=== PATIENT | female | born 1985 | race Caucasian/White ===

== ENCOUNTER 2018-11-25 22:15 | Emergency (ER) | payer BC ==
[2018-11-25 22:55] LABS: Absolute Lymphocytes (CBC) 5.4 K/uL (0.7-4.9); Absolute Monocytes 0.6 K/uL (0.1-1.3); Absolute Neutrophil 4.3 K/uL (1.8-8.0); Basophils % 0.2 % (0-1.3); Eosinophils % 0.1 % (0-4.4); Hematocrit 41.2 % (36.0-45.0); Lymphocytes % 52.7 % (15.3-44.8); MPV 9.6 fL (7.6-11.3); Monocytes % 5.5 % (3.3-12.3); RBC Red Blood Cell Count 4.84 M/uL (3.86-4.86)
[2018-11-25 23:07] LABS: Blood Morphology Comment NOT SEEN (NOT SEEN); Platelet Estimate ADEQ
[2018-11-25] MEDS ORDERED: ONDANSETRON 4 MG/2 ML VIAL ONE (23:09)
[2018-11-25 23:10] LABS: Protime INR 0.95
[2018-11-25] MEDS ORDERED: KETOROLAC 30 MG/ML INJ ONE (23:48)
--- NOTE | 2018-11-25 23:54 | ER ---
Nurse's Notes [facility] Name: Georgia York Age: 33 yrs Sex: Female : 1985 Arrival Date: 11/25/2018 Time: 22:18 Bed 5 Private MD: None, None Diagnosis: Toxic effect of coral snake venom, accidental (unintentional) Presentation: 11/25 22:23 Presenting complaint: Patient states: She was bitten by a snake on the foot aj1 approximately 50 minutes ago, patient reports and increase in redness and swelling to the foot. Patient also reports numbness to the foot, denies SOB. Transition of care: patient was not received from another setting of care. Onset of symptoms was November 25, 2018 at 21:35. Risk Assessment: Do you want to hurt yourself or someone else? Patient reports no desire to harm self or others. Initial Sepsis Screen: Does the patient meet any 2 criteria? HR > 90 bpm. No. Patient's initial sepsis screen is negative. Does the patient have a suspected source of infection? No. Patient's initial sepsis screen is negative. Care prior to arrival: None. 22:23 Method Of Arrival: Wheelchair aj1 22:23 Acuity: MAGAN 2 aj1 Triage Assessment: 22:25 Bite description: bite sustained to dorsum of left foot by a snake. General: Appears in aj1 no apparent distress. uncomfortable, Behavior is calm, cooperative, appropriate for age. Pain: Complains of pain in dorsum of left foot. Neuro: Level of Consciousness is awake, alert, obeys commands. Cardiovascular: Patient's skin is warm and dry. Respiratory: Airway is patent Respiratory effort is even, unlabored, Respiratory pattern is regular, symmetrical. 22:35 Bite description: animal information: vaccination(s) is not applicable. ak1 STUDENT DEVELOPMENT COORDINATOR: 23:40 negative preg in ER ak1 Historical: - Allergies: 22:25 No Known Allergies; aj1 - Home Meds: 22:25 control pills [Active]; aj1 - PMHx: 22:25 None; aj1 - PSHx: 22:25 Hernia repair; aj1 - Immunization history:: Flu vaccine is up to date. - Social history:: Smoking status: Patient/guardian denies using tobacco. - Ebola Screening: : Patient denies travel to an Ebola-affected area in the 21 days before illness onset. Screenin:34 Abuse screen: Denies threats or abuse. Denies injuries from another. Nutritional ak1 screening: No deficits noted. Tuberculosis screening: No symptoms or risk factors identified. Fall Risk None identified. Assessment: 22:32 General: Appears in no apparent distress. Behavior is calm, cooperative, Smells of ak1 alcohol. Pain: Complains of pain in left foot. Neuro: No deficits noted. Cardiovascular: No deficits noted. Respiratory: No deficits noted. GI: No signs and/or symptoms were reported involving the gastrointestinal system. : No signs and/or symptoms were reported regarding the genitourinary system. EENT: No signs and/or symptoms were reported regarding the EENT system. Derm: Skin is intact, Skin is dry, Skin is red, Wound noted left foot Bruising that is bright red, dark purple. Musculoskeletal: Reports numbness in left fourth toe and left fifth toe. 23:41 Reassessment: Patient appears in no apparent distress at this time. swelling and ak1 discoloration increasing up pt's left foot and outer left ankle, area remarked with time and date. 11/26 00:19 Reassessment: Patient appears in no apparent distress at this time. No changes from ak1 previously documented assessment. Vital Signs: 11/25 22:25 BP 147 / 101; Pulse 114; Resp 20; Temp 98.5; Pulse Ox 100% on R/A; Weight 63.05 kg (R); aj1 Height 5 ft. 3 in. (160.02 cm) (R); 22:34 BP 129 / 95; Pulse 96; Resp 18; Temp 98.5(TE); Pulse Ox 100% on R/A; ak1 23:29 BP 126 / 84; Pulse 92; Resp 18; Temp 98.5; Pulse Ox 100% on R/A; ak1 11/26 00:19 BP 125 / 83; Pulse 93; Resp 18; Temp 98.5; Pulse Ox 100% on R/A; ak1 11/25 22:25 Body Mass Index 24.62 (63.05 kg, 160.02 cm) aj1 ED Course: 11/25 22:18 Patient arrived in ED. mr 22:18 None, None is Private Physician. mr 22:24 Triage completed. aj1 22:25 Arm band placed on Patient placed in an exam room. aj1 22:31 Emely Delgado, RN is Primary Nurse. ak1 22:32 Patient has correct armband on for positive identification. Bed in low position. Call ak1 light in reach. Side rails up X2. Adult w/ patient. Pulse ox on. NIBP on. 22:32 Initial lab(s) drawn, by me, sent to lab. Inserted saline lock: 20 gauge in right ak antecubital area, using aseptic technique. Blood collected. 22:52 Hossein Mcmillan MD is Attending Physician. tw4 23:29 No provider procedures requiring assistance completed. Patient transferred, IV remains ak1 in place. Administered Medications: 23:09 Drug: Zofran 4 mg Route: IVP; Site: right antecubital; ak1 23:39 Follow up: Response: No adverse reaction ak1 23:38 Drug: TORadol 30 mg Route: IVP; Site: right antecubital; ak1 23:39 Follow up: Response: No adverse reaction [facility] Outcome: 23:29 Instructed on the need for transfer. ak1 23:42 Transferred by ground EMS Transfer form completed. Note: Sean [facility] ER. report given to ak1 Aparna GUAMANnetwork engineer for Sean Zamzam 23:42 Condition: stable 23:53 ER care complete, transfer ordered by . tw4 11/26 00:21 Patient left the ED. ak Signatures: Kiera Farias, RN RN aj1 Linh Reynolds mr Emely Delgado, RN RN ak1 Hossein Mcmillan MD MD tw4
--- NOTE | 2018-11-28 04:32 | EDPHYS ---
Physician Documentation [facility] Name: Georgia York Age: 33 yrs Sex: Female : 1985 Arrival Date: 11/25/2018 Time: 22:18 Bed 5 Private MD: None, None ED Physician Hossein Mcmillan HPI: 11/26 06:54 This 33 yrs old Female presents to ER via Wheelchair with complaints of Snake tw4 bite. 06:54 The patient was bitten on the left fourth toe, by a snake. Onset: The symptoms/episode tw4 began/occurred today. Secondary to the bite the patient reports pain. Associated signs and symptoms: The patient has no apparent associated signs or symptoms. Severity of symptoms: At their worst the symptoms were moderate, in the emergency department the symptoms are unchanged. WORK CHECKER: 11/25 23:40 negative preg in ER ak1 Historical: - Allergies: 22:25 No Known Allergies; aj1 - Home Meds: 22:25 control pills [Active]; aj1 - PMHx: 22:25 None; aj1 - PSHx: 22:25 Hernia repair; aj1 - Immunization history:: Flu vaccine is up to date. - Social history:: Smoking status: Patient/guardian denies using tobacco. - Ebola Screening: : Patient denies travel to an Ebola-affected area in the 21 days before illness onset. ROS: 11/26 06:54 Constitutional: Negative for fever, chills, and weight loss, Eyes: Negative for injury, tw4 pain, redness, and discharge, Cardiovascular: Negative for chest pain, palpitations, and edema, Respiratory: Negative for shortness of breath, cough, wheezing, and pleuritic chest pain, Abdomen/GI: Negative for abdominal pain, nausea, vomiting, diarrhea, and constipation. Skin: Negative for injury, rash, and discoloration, Neuro: Negative for headache, weakness, numbness, tingling, and seizure. MS/extremity: Positive for pain, swelling, tenderness. Exam: 06:54 Constitutional: This is a well developed, well nourished patient who is awake, alert, tw4 and in no acute distress. Head/Face: Normocephalic, atraumatic. Chest/axilla: Normal chest wall appearance and motion. Nontender with no deformity. No lesions are appreciated. Cardiovascular: Regular rate and rhythm with a normal S1 and S2. No gallops, murmurs, or rubs. Normal PMI, no JVD. No pulse deficits. Respiratory: Lungs have equal breath sounds bilaterally, clear to auscultation and percussion. No rales, rhonchi or wheezes noted. No increased work of breathing, no retractions or nasal flaring. Abdomen/GI: Soft, non-tender, with normal bowel sounds. No distension or tympany. No guarding or rebound. No evidence of tenderness throughout. 06:54 Musculoskeletal/extremity: Extremities: pain, puncture. Vital Signs: 11/25 22:25 BP 147 / 101; Pulse 114; Resp 20; Temp 98.5; Pulse Ox 100% on R/A; Weight 63.05 kg (R); aj1 Height 5 ft. 3 in. (160.02 cm) (R); 22:34 BP 129 / 95; Pulse 96; Resp 18; Temp 98.5(TE); Pulse Ox 100% on R/A; ak1 23:29 BP 126 / 84; Pulse 92; Resp 18; Temp 98.5; Pulse Ox 100% on R/A; ak1 11/26 00:19 BP 125 / 83; Pulse 93; Resp 18; Temp 98.5; Pulse Ox 100% on R/A; ak1 11/25 22:25 Body Mass Index 24.62 (63.05 kg, 160.02 cm) aj1 MDM: 11/25 22:52 Patient medically screened. tw4 11/26 06:54 Differential diagnosis: superficial laceration, tendon injury. Data reviewed: vital tw4 signs, nurses notes. Counseling: I had a detailed discussion with the patient and/or guardian regarding: the historical points, exam findings, and any diagnostic results supporting the discharge/admit diagnosis, the need for outpatient follow up. Special discussion:. ED course: pt has possible coral snake envenomation. will transfer to [facility] for further evaluaiton. 11/25 22:40 Order name: CBC with Manual Differential bb 11/25 22:40 Order name: PT-INR bb 11/25 22:40 Order name: Ptt, Activated bb 11/25 22:40 Order name: Fibrinogen bb 11/25 22:40 Order name: D-Dimer bb 11/25 23:05 Order name: Test, Serum bb Administered Medications: 11/25 23:09 Drug: Zofran 4 mg Route: IVP; Site: right antecubital; ak1 23:39 Follow up: Response: No adverse reaction ak1 23:38 Drug: TORadol 30 mg Route: IVP; Site: right antecubital; ak1 23:39 Follow up: Response: No adverse reaction ak1 Disposition: 11/25/18 23:53 Transfer ordered to [facility]. Diagnosis is Toxic effect of coral snake venom, accidental (unintentional). - Reason for transfer: Higher level of care. - Accepting physician is Dr Stapleton. - Condition is Stable. - Problem is new. - Symptoms have improved. Signatures: Dispatcher [employer] EDKiera Silverio RN RN barry1 Emely Delgado RN RN ak1 Hossein Mcmillan MD MD tw4 Corrections: (The following items were deleted from the chart) 11/26 00:21 11/25 23:53 11/25/2018 23:53 Transfer ordered to [facility]. Diagnosis is Toxic ak1 effect of coral snake venom, accidental (unintentional). Reason for transfer: Higher level of care. Accepting physician is Dr Stapleton. Condition is Stable. Problem is new. Symptoms have improved. tw4
== END 2018-11-26 00:21 | disposition short-term general hospital (02) ==
LOC: ER 22:15
DX: T63.021A Toxic effect of coral snake venom, accidental (unintentional), initial encounter (principal)
CPT/HCPCS: 36415; 84703; 85025; 85379; 85384; 85610; 85730; 96374; 96375; 99285; J2405